=== PATIENT | female | born 1985 | race Caucasian/White ===

== ENCOUNTER 2017-01-13 10:53 | Emergency (ER) | payer SELFPAY ==
[2017-01-13] MEDS ORDERED: OXYCODONE-ACETAMINOPHEN 5-325 MG TABLET PO ONE (12:23)
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
[2017-01-13 13:00] LABS: APPEARANCE,URINE SLIGHTLY-CLOUDY; BILIRUBIN,URINE NEGATIVE (NEGATIVE); GLUCOSE, URINE NEGATIVE (NEGATIVE); KETONES,URINE NEGATIVE (NEGATIVE); LEUKOCYTE ESTERASE,URINE TRACE (NEGATIVE); NITRITE,URINE NEGATIVE (NEGATIVE); PROTEIN,URINE NEGATIVE (NEGATIVE); URINE SPECIFIC GRAVITY 1.021; UROBILINOGEN,URINE NEGATIVE mg/dL (<2.0)
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
[2017-01-13 15:35] LABS: CHLAM PCR NOT DETECTED (NOT DETECT)
[2017-01-13 16:04] VITALS: BP 120/75
== END 2017-01-13 16:03 | disposition home or self-care (01) ==
LOC: ER 10:53
DX: H11.31 Conjunctival hemorrhage, right eye (principal); R03.0 Elevated blood-pressure reading, without diagnosis of hypertension; F17.210 Nicotine dependence, cigarettes, uncomplicated; W50.3XXD Accidental bite by another person, subsequent encounter
CPT/HCPCS: 70486; 71020; 81001; 81025; 87210; 87491; 87591; 99284